=== PATIENT | female | born 1990 | race Hispanic/Latino ===

== ENCOUNTER 2019-03-25 18:05 | Emergency (ER) | payer MEDICAID, OTHER ==
--- NOTE | 2019-03-25 19:01 | CT ---
CT head noncontrast HISTORY: Headache. FINDINGS: There is no evidence of acute intracranial hemorrhage or infarct. Minimal physiologic calci fication at each basal ganglia. There is no mass effect or shift of midline structures. Visualized paranasal sinuses remain well aerated. IMPRESSION: No acute intracranial abnormalities are demonstrated.
== END 2019-03-25 20:07 | disposition home or self-care (01) ==
LOC: ERS 18:05
DX: R51 Headache (principal); R05 Cough
CPT/HCPCS: 70450

== ENCOUNTER 2019-11-06 15:09 | Emergency (ER) | payer OTHER, SELFPAY ==
[2019-11-07 16:01] LABS: SARS-CoV-2 MS2 Positive; SARS-CoV-2 N Gene Negative; SARS-CoV-2 S Gene Negative; SARS-CoV-2 by NAA Not Detected (NotDetected); SARS-CoV-2 orf1ab Negative
== END 2019-11-06 15:30 | disposition home or self-care (01) ==
LOC: ERS 15:09
DX: Z20.828 Contact with and (suspected) exposure to other viral communicable diseases (principal)
CPT/HCPCS: 87635; 99283; U0003

== ENCOUNTER 2020-04-23 17:23 | Emergency (ER) | payer SELFPAY ==
[2020-04-23 18:00] LABS: Pregnancy Test - Urine (BHCG) Negative (Negative); Pregu Control Background? CLEAR/WHITE (CLR/WHITE); Pregu Control Bar Appear? YES (CONTROL BAR); Specific Gravity 1.016 (1.002-1.036)
[2020-04-23 18:01] LABS: Bacteria/HPF 3+ HPF (None Seen); Bilirubin 1+ (Negative); Blood, Urine 1+ (Negative); Clarity Turbid (Clear); Glucose, Urine (Dipstick) Normal (Negative); Ketone, Urine Negative (Negative); Leukocyte 500 Leu/uL (Negative); Nitrite 2+ (Negative); Protein, Urine (Dipstick) 100 mg/dL (Neg-Trace); Renal Epithelial 0-3 HPF (None Seen); Specific Gravity, Urine 1.016 (1.002-1.036); Squamous Epithelial 0-3 HPF (0-3); Urobilinogen 3 mg/dL (Less than 2); WBC/HPF Greater than 50 HPF (0-3)
[2020-04-23] MEDS ORDERED: HYDROcodone/Acetaminophen 10/325 mg Tablet ONE (18:57)
[2020-04-27 21:57] LABS: Chlamydia by PCR Not Detected (NotDetected); GC by PCR Not Detected (NotDetected)
== END 2020-04-23 19:11 | disposition home or self-care (01) ==
LOC: ERS 17:23
DX: N30.01 Acute cystitis with hematuria (principal); N76.0 Acute vaginitis
CPT/HCPCS: 81003; 81015; 81025; 87480; 87491; 87510; 87591; 87660; 99284

== ENCOUNTER 2024-12-27 11:43 | Emergency (ER) | payer BC, SELFPAY ==
[2024-12-27] MEDS ORDERED: Ondansetron PF 4 MG/2 ML Vial ONE ×2 (12:54→16:10)
[2024-12-27] MEDS ORDERED: Ketorolac Tromethamine 30 MG (1 mL) VIAL ONE (12:54)
[2024-12-27 13:23] LABS: #Basophils 0.03 10x3/uL (0.0-0.2); #Eosinophils 0.04 10x3/uL (0.0-0.7); #Monocytes 0.30 10x3/uL (0.11-0.59); #Neutrophils 11.24 10x3/uL (1.40-6.50); %Basophils 0.2 % (0.0-1.0); %Eosinophils 0.3 % (0.0-10.0); %Lymphocytes 8.6 % (21.0-51.0); %Monocytes 2.4 % (0.0-10.0); %Neutrophils 88.2 % (42.0-75.0); Hematocrit 40.4 % (36.0-47.0); Hemoglobin 13.6 g/dL (12.0-16.0); Mean Corpuscular Hemoglobin 30.6 pg (27.0-31.0); Mean Corpuscular Volume 90.8 fL (78.0-98.0); Platelet Count 326 10x3/uL (130-400); Red Blood Cell (RBC) Count 4.45 mill/uL (4.20-5.40); White Blood Cell (WBC) Count 12.75 10x3/uL (4.8-10.8)
[2024-12-27 13:41] LABS: BHCG - Serum Negative (NEGATIVE); Pregs Control Background? CLEAR/WHITE (CLR/WHITE); Pregs Control Bar Appear? YES (CONTROL BAR)
[2024-12-27 13:52] LABS: ALT (SGPT) 12 U/L (Less than 34); AST (SGOT) 23 U/L (11-34); Albumin 4.0 g/dL (3.1-4.5); Alkaline Phosphatase 61 U/L (40-110); Anion Gap 12 mmol/L (10-20); BUN (Urea Nitrogen) 10 mg/dL (7.0-18.7); Bilirubin, Total 0.5 mg/dL (0.3-1.2); Calc. Creatinine Clearance 0 mL/min (70-130); Calcium 8.7 mg/dL (7.8-10.44); Carbon Dioxide 22 mmol/L (22-29); Chloride 112 mmol/L (98-107); Globulin 3.3 g/dL (2.4-3.5); Glucose 103 mg/dL (70-105); Lipase 10 U/L (8-78); Potassium 3.9 mmol/L (3.5-5.1); Sodium 142 mmol/L (136-145)
[2024-12-27 17:13] LABS: CAUTI Indications for Culture Pelvic or flank pain; Glucose, Urine (Dipstick) Normal (Negative); Leukocyte 25 Leu/uL (Negative); Protein, Urine (Dipstick) 10 mg/dL (Neg-Trace); Specific Gravity, Urine 1.024 (1.002-1.036)
[2024-12-27 17:14] LABS: Bacteria/HPF 1+ HPF (None Seen)
[2024-12-27 17:15] LABS: Urine Culture Reflex No No
[2024-12-27] MEDS ORDERED: Acetaminophen 500 MG TAB ONE (19:38)
[2024-12-27] MEDS ORDERED: cefTRIAXone (ROCEPHIN) 2 GM VIAL ONE (19:39)
== END 2024-12-27 21:22 | disposition home or self-care (01) ==
LOC: ERS 11:43
DX: N39.0 Urinary tract infection, site not specified (principal); D27.0 Benign neoplasm of right ovary
CPT/HCPCS: 74176; 76856; 80053; 81001; 83690; 84703; 85025; 87086; 93976; 96361; 96365; 96375; 96376; J0696; J1885; J2270; J2405; J3010; Q0169

== ENCOUNTER 2025-02-10 02:02 | Observation (INO) | payer BC ==
[2025-02-10 02:41] LABS: #Basophils 0.05 10x3/uL (0.0-0.2); #Eosinophils 0.34 10x3/uL (0.0-0.7); #Monocytes 0.54 10x3/uL (0.11-0.59); #Neutrophils 7.63 10x3/uL (1.40-6.50); %Basophils 0.4 % (0.0-1.0); %Eosinophils 3.0 % (0.0-10.0); %Lymphocytes 24.5 % (21.0-51.0); %Monocytes 4.7 % (0.0-10.0); %Neutrophils 67.1 % (42.0-75.0); Hematocrit 39.7 % (36.0-47.0); Hemoglobin 12.8 g/dL (12.0-16.0); Mean Corpuscular Hemoglobin 28.6 pg (27.0-31.0); Mean Corpuscular Volume 88.8 fL (78.0-98.0); Platelet Count 353 10x3/uL (130-400); Red Blood Cell (RBC) Count 4.47 mill/uL (4.20-5.40); White Blood Cell (WBC) Count 11.38 10x3/uL (4.8-10.8)
[2025-02-10 02:54] LABS: BHCG - Serum Negative (NEGATIVE); Pregs Control Background? CLEAR/WHITE (CLR/WHITE); Pregs Control Bar Appear? YES (CONTROL BAR)
[2025-02-10] MEDS ORDERED: Ondansetron PF 4 MG/2 ML Vial ONE ×2 (02:54→09:38)
[2025-02-10 03:00] LABS: ALT (SGPT) 10 U/L (Less than 34); AST (SGOT) 15 U/L (11-34); Albumin 4.3 g/dL (3.1-4.5); Alkaline Phosphatase 94 U/L (40-110); Anion Gap 15 mmol/L (10-20); BUN (Urea Nitrogen) 9 mg/dL (7.0-18.7); Bilirubin, Total 0.3 mg/dL (0.3-1.2); Calc. Creatinine Clearance 0 mL/min (70-130); Calcium 9.6 mg/dL (7.8-10.44); Carbon Dioxide 20 mmol/L (22-29); Chloride 108 mmol/L (98-107); Globulin 3.5 g/dL (2.4-3.5); Glucose 118 mg/dL (70-105); Lipase 20 U/L (8-78); Potassium 3.3 mmol/L (3.5-5.1); Sodium 140 mmol/L (136-145)
[2025-02-10] MEDS ORDERED: Acetaminophen 325 MG TAB PO PRN (06:08)
[2025-02-10] MEDS ORDERED: NS 0.9% w/ 20 MEQ KCL 1,000 ML ONE (06:35)
[2025-02-10] MEDS ORDERED: FLU (Fluarix Triv) 25-26 (6MOS UP)/PF 45 MCG/0.5 ML Syringe IM ONE (09:00)
[2025-02-10] MEDS ORDERED: Melatonin 3 MG TAB PO PRN (09:37)
[2025-02-10] MEDS ORDERED: Ondansetron PF 4 MG/2 ML Vial IVP PRN (09:37)
[2025-02-10] MEDS ORDERED: fentaNYL PF 100 MCG/2 ML SYRINGE ONE (09:38)
[2025-02-10] MEDS ORDERED: Lidocaine 1% PF 5 ML VIAL ONE (09:38)
[2025-02-10] MEDS ORDERED: Lidocaine 2% 6 ML (Jelly) SYR ONE (09:41)
[2025-02-10] MEDS ORDERED: LevoFLOXacin D5W 500 mg (100 mL) BAG ONE (10:48)
[2025-02-10] MEDS ORDERED: PHENYLEPHRINE-NS 100 MCG/ML 10 ML SYRINGE ONE (10:50)
[2025-02-10] MEDS ORDERED: PROPOFOL 200 MG/20 ML VIAL ONE (10:50)
[2025-02-10] MEDS ORDERED: Rocuronium Bromide 10 MG/ML (10ML VIAL) ONE (10:50)
[2025-02-10] MEDS ORDERED: SUGAMMADEX SODIUM 200 MG/2 ML VIAL ONE ×2 (11:30→11:31)
[2025-02-10 11:35] VITALS: BMI 31.1
[2025-02-10] MEDS: Dicyclomine 10 MG CAP PO PRN (16:31)
[2025-02-11 07:23] LABS: #Basophils 0.03 10x3/uL (0.0-0.2); #Eosinophils 0.24 10x3/uL (0.0-0.7); #Monocytes 0.65 10x3/uL (0.11-0.59); #Neutrophils 10.04 10x3/uL (1.40-6.50); %Basophils 0.2 % (0.0-1.0); %Eosinophils 1.8 % (0.0-10.0); %Lymphocytes 18.8 % (21.0-51.0); %Monocytes 4.8 % (0.0-10.0); %Neutrophils 74.0 % (42.0-75.0); Hematocrit 37.1 % (36.0-47.0); Hemoglobin 11.8 g/dL (12.0-16.0); Mean Corpuscular Hemoglobin 28.3 pg (27.0-31.0); Mean Corpuscular Volume 89.0 fL (78.0-98.0); Platelet Count 323 10x3/uL (130-400); Red Blood Cell (RBC) Count 4.17 mill/uL (4.20-5.40); White Blood Cell (WBC) Count 13.56 10x3/uL (4.8-10.8)
[2025-02-11 07:41] LABS: ALT (SGPT) 10 U/L (Less than 34); AST (SGOT) 13 U/L (11-34); Albumin 3.3 g/dL (3.1-4.5); Alkaline Phosphatase 74 U/L (40-110); Anion Gap 11 mmol/L (10-20); BUN (Urea Nitrogen) 11 mg/dL (7.0-18.7); Bilirubin, Total 0.8 mg/dL (0.3-1.2); Calc. Creatinine Clearance 169 mL/min (70-130); Calcium 8.6 mg/dL (7.8-10.44); Carbon Dioxide 22 mmol/L (22-29); Chloride 110 mmol/L (98-107); Globulin 2.9 g/dL (2.4-3.5); Glucose 106 mg/dL (70-105); Potassium 3.5 mmol/L (3.5-5.1); Sodium 139 mmol/L (136-145)
[2025-02-11 09:07] LABS: Bacteria/HPF 1+ HPF (None Seen); CAUTI Indications for Culture Pelvic or flank pain; Glucose, Urine (Dipstick) Normal (Negative); Leukocyte Negative Leu/uL (Negative); Protein, Urine (Dipstick) Negative (Neg-Trace); RBC/HPF 0-3 HPF (0-3); Specific Gravity, Urine 1.022 (1.002-1.036); Urine Culture Reflex No No; WBC/HPF 0-3 HPF (0-3)
[2025-02-11] MEDS ORDERED: Bupivacaine 0.25% HCL 30 ML VIAL ONE (10:00)
[2025-02-11] MEDS ORDERED: fentaNYL PF 100 MCG/2 ML SYRINGE ONE ×2 (10:15→11:18)
[2025-02-11] MEDS ORDERED: SUGAMMADEX SODIUM 200 MG/2 ML VIAL ONE (10:58)
[2025-02-11] MEDS ORDERED: HYDROcodone/Acetaminophen 5/325 mg Tablet PO PRN (12:12)
[2025-02-11 22:13] VITALS: BP 125/63; TEMP 98.2
== END 2025-02-11 15:45 | disposition home or self-care (01) ==
LOC: ERS 02:02 → T4-B 06:26
PROVIDERS: ADMIT Student in an Organized Health Care Education/Training Program; ATTEND Internal Medicine
PROC: 0F9C8ZZ Drainage of Ampulla of Vater, Via Natural or Artificial Opening Endoscopic (ICD-10-PCS; principal; 2025-02-10)
PROC: 0FT44ZZ Resection of Gallbladder, Percutaneous Endoscopic Approach (ICD-10-PCS; 2025-02-11)
DX: K80.46 Calculus of bile duct with acute and chronic cholecystitis without obstruction (principal); E87.6 Hypokalemia; Z90.710 Acquired absence of both cervix and uterus; Z98.51 Tubal ligation status
CPT/HCPCS: 36415; 76705; 80053; 81001; 83690; 84703; 85025; 88304; 93005; 96361; 96374; 96375; 96376; C1889; G0378; J0169; J0665; J1100; J1956; J2250; J2270; J2405; J2704; J3010; J3480; J7120; Q9967